=== PATIENT | male | born 1995 | race Caucasian/White ===

== ENCOUNTER 2019-09-06 13:00 | Emergency (ER) | payer BC, MEDICAID ==
[~2019-09-06] VITALS: Ht 182.9 cm; Wt 100.7 kg
[2019-09-06 13:15] VITALS: BP 136/82
--- NOTE | 2019-09-06 13:29 | NUR ---
24/M C/O SORE THROAT, PAIN WITH SWALLOWING SINCE LAST NIGHT WITH VOMITING. OROPHARYNX ERYTHEMATOUS WITH TONSILLAR EXUDATES. PAIN 8/10 WITH SWALLOWING TACHY 111. APPEARS NAD AT THIS TIME. HX DENIES
--- NOTE | 2019-09-06 13:29 | NUR ---
DR. PUGH EVALUATING PT AT BEDSIDE
[2019-09-06] MEDS ORDERED: hydrOXYzine HCL 25 MG TAB PO ONE (13:35)
[2019-09-06] MEDS ORDERED: ONDANSETRON 4 MG ODT PO ONE (13:35)
[2019-09-06] MEDS ORDERED: DEXAMETHASONE 10 MG/ML VIAL IM ONE (13:35)
[2019-09-06] MEDS ORDERED: CLINDAMYCIN 600 MG/4 ML VIAL IM ONE (13:35)
[2019-09-06] MEDS ORDERED: FAMOTIDINE 20 MG TAB PO ONE (13:35)
[2019-09-06 14:15] VITALS: BP 136/50
--- NOTE | 2019-09-06 14:15 | NUR ---
Patient discharged with v/s stable. Written and verbal after care instructions given and explained. Patient alert, oriented and verbalized understanding of instructions. Ambulatory with steady gait. All questions addressed prior to discharge. ID band removed. Patient advised to follow up with PMD. Rx of Clindamycin and Prednisone given. Patient educated on indication of medication including possible reaction and side effects. Opportunity to ask questions provided and answered.
== END 2019-09-06 14:15 | disposition home or self-care (01) ==
LOC: MED 13:00
DX: J03.90 Acute tonsillitis, unspecified (principal); R11.10 Vomiting, unspecified
CPT/HCPCS: 96372; 99284; J1100; J3490; Q0162

== ENCOUNTER 2020-11-10 06:40 | Emergency (ER) | payer BC, MEDICAID, OTHER ==
[~2020-11-10] VITALS: Ht 185.4 cm; Wt 95.3 kg
[2020-11-10 06:43] VITALS: BP 161/80
--- NOTE | 2020-11-10 06:43 | NUR ---
TO BED AMBULATORY
--- NOTE | 2020-11-10 06:53 | NUR ---
25 y/o male bib self complaining of foreign body in right eye. pt also complaining of pain 6/10, burning sensation and irritation. pt tried washing and flushing eye, eyedrops but it is not working. denies pmh nka
--- NOTE | 2020-11-10 07:08 | NUR ---
Dr. Obrien examining patient.
--- NOTE | 2020-11-10 07:09 | NUR ---
endorsed to morning shift nurse for continuity of care
[2020-11-10] MEDS ORDERED: FLUORESCEIN OPTH STRIP 1 MG OP ONE (07:10)
[2020-11-10] MEDS ORDERED: TETRACAINE HCL/PF 0.5% OPTH 4 ML BTL OP ONE (07:10)
--- NOTE | 2020-11-10 07:10 | NUR ---
Report and continuation of care received from ELYSIA Yang.
--- NOTE | 2020-11-10 07:15 | NUR ---
Dr. Obrien is reevaluating patient at bedside.
[2020-11-10] MEDS ORDERED: KETO5SOL OP (07:26)
[2020-11-10] MEDS ORDERED: GAROS RIGHT EYE (07:27)
--- NOTE | 2020-11-10 07:33 | NUR ---
Patient presents standing next to bedside on telephone. VSS.
[2020-11-10 07:38] VITALS: BP 142/87
--- NOTE | 2020-11-10 07:38 | NUR ---
Patient discharged with v/s stable. Written and verbal after care instructions given and explained. Patient alert, oriented and verbalized understanding of instructions. Ambulatory with steady gait. All questions addressed prior to discharge. ID band removed. Patient advised to follow up with PMD. Rx of Gentamicin Sulfate, Ketorolac Tromethamine given. Patient educated on indication of medication including possible reaction and side effects. Opportunity to ask questions provided and answered.
== END 2020-11-10 07:38 | disposition home or self-care (01) ==
LOC: MED 06:40
DX: S05.01XA Injury of conjunctiva and corneal abrasion without foreign body, right eye, initial encounter (principal); X58.XXXA Exposure to other specified factors, initial encounter; Y93.9 Activity, unspecified; Y92.89 Other specified places as the place of occurrence of the external cause; Y99.8 Other external cause status
CPT/HCPCS: 99283